=== PATIENT | female | born 1965 | race Caucasian/White ===

== ENCOUNTER 2020-04-12 06:15 | Day surgery (SDC) | payer OTHER ==
[~2020-04-12 06:15] MED LIST: AMOX1TAB5 PO; PERCOCET 5/3251 TAB PO; RECTICARE30 GM TP
== END 2020-04-12 14:25 | disposition home or self-care (01) ==
LOC: AMB-ENDOS 06:15
DX: C21.1 Malignant neoplasm of anal canal (principal); K63.5 Polyp of colon

== ENCOUNTER 2020-05-17 06:45 | Day surgery (SDC) | payer OTHER ==
[~2020-05-17 06:45] MED LIST changes: +GABAPENTIN400 MG PO; +METADONA PO; +REMERON30 MG PO
[2020-05-17] MEDS ORDERED: PERCOCET 5-3251 EACH PO (09:44)
== END 2020-05-17 12:30 | disposition home or self-care (01) ==
LOC: CIR.AMB 06:45 → AMB-ENDOS 10:30 → CIR.AMB 12:30
PROVIDERS: ATTEND Surgery
DX: C21.1 Malignant neoplasm of anal canal (principal)
CPT/HCPCS: 36561; C1751